=== PATIENT | female | born 1985 | race Asian ===

== ENCOUNTER 2017-07-18 12:35 | Emergency (ER) | payer OTHER ==
[~2017-07-18] VITALS: Ht 160 cm; Wt 68.9 kg
== END 2017-07-18 13:56 | disposition home or self-care (01) ==
LOC: ED 12:35
DX: H57.12 Ocular pain, left eye (principal); H00.034 Abscess of left upper eyelid; H00.035 Abscess of left lower eyelid; H00.014 Hordeolum externum left upper eyelid
CPT/HCPCS: 99282

== ENCOUNTER 2017-10-17 08:47 | Emergency (ER) | payer OTHER | END 2017-10-17 08:52 | disposition home or self-care (01) | LOC: ED 08:47 | DX: T23.009A Burn of unspecified degree of unspecified hand, unspecified site, initial encounter (principal); X08.8XXA Exposure to other specified smoke, fire and flames, initial encounter; Y93.89 Activity, other specified; Y92.89 Other specified places as the place of occurrence of the external cause; Y99.8 Other external cause status ==

== ENCOUNTER 2017-12-19 08:07 | Emergency (ER) | payer OTHER ==
[~2017-12-19] VITALS: Ht 160 cm; Wt 68.9 kg
[2017-12-19 09:21] LABS: POTASSIUM 4.2 mmol/L (3.6-5.2)
[2017-12-19 09:24] LABS: PLATELET COUNT 419 K/uL (152-353)
== END 2017-12-19 09:40 | disposition home or self-care (01) ==
LOC: ED 08:07
PROVIDERS: Family Medicine
DX: J06.9 Acute upper respiratory infection, unspecified (principal)
CPT/HCPCS: 80048; 85027; 99283

== ENCOUNTER 2018-02-24 07:55 | Emergency (ER) | payer OTHER ==
[~2018-02-24] VITALS: Ht 160 cm; Wt 72.6 kg
== END 2018-02-24 09:03 | disposition home or self-care (01) ==
LOC: ED 07:55
DX: T23.071A Burn of unspecified degree of right wrist, initial encounter (principal); T31.0 Burns involving less than 10% of body surface; X11.8XXA Contact with other hot tap-water, initial encounter
CPT/HCPCS: 99282

== ENCOUNTER 2019-02-27 09:13 | Emergency (ER) | payer OTHER ==
[~2019-02-27] VITALS: Ht 160 cm; Wt 82.1 kg
[2019-02-27 09:31] VITALS: TEMP 97.9
[2019-02-27 10:24] LABS: PLATELET COUNT 289 K/uL (152-353)
[2019-02-27 10:32] LABS: POTASSIUM 3.9 mmol/L (3.6-5.2)
[2019-02-27 15:10] VITALS: BP 100/55
== END 2019-02-27 15:10 | disposition home or self-care (01) ==
LOC: ED 09:13
PROVIDERS: Internal Medicine
DX: R10.9 Unspecified abdominal pain (principal); N85.2 Hypertrophy of uterus
CPT/HCPCS: 36415; 80053; 81000; 85027; 96374; 96375; 99284; J1885; J2405; J2550; Q9963

== ENCOUNTER 2020-05-16 13:47 | Emergency (ER) | payer OTHER ==
[~2020-05-16] VITALS: Ht 160 cm; Wt 82.1 kg
[2020-05-16 14:21] VITALS: BP 137/71; TEMP 99.4
== END 2020-05-16 16:22 | disposition home or self-care (01) ==
LOC: ED 13:47
DX: R05 Cough (principal); R06.02 Shortness of breath
CPT/HCPCS: 99281

== ENCOUNTER 2023-01-01 16:01 | Observation (INO) | payer OTHER ==
[~2023-01-01] VITALS: Ht 160 cm; Wt 70.0 kg
[2023-01-01 16:08] VITALS: BP 137/80; TEMP 98.4
[2023-01-01 16:49] LABS: POTASSIUM 3.6 mmol/L (3.6-5.2)
[2023-01-01 17:12] LABS: PLATELET COUNT 210 K/uL (152-353)
[2023-01-01 17:39] LABS: PARTIAL THROMBOPLASTIN TIME < 20.0 SECONDS (24.5-33.6)
[2023-01-01 20:08] VITALS: BP 119/57; TEMP 98.3
[2023-01-01 22:41] VITALS: BP 127/65; TEMP 98.5; Ht 160 cm; Wt 70.0 kg
[2023-01-02] VITALS (12 sets, daily range): BP systolic 104–122; BP diastolic 51–78; TEMP 97.6–98.8
[2023-01-02] MEDS ORDERED: ASCO500T18 PO (07:48)
[2023-01-02] MEDS ORDERED: FERROUS SULF325 MG PO (07:48)
[2023-01-02 08:45] LABS: PLATELET COUNT 179 K/uL (152-353)
== END 2023-01-02 13:57 | disposition home or self-care (01) ==
LOC: ED 16:01 → MED/SURG 17:35
PROVIDERS: ADMIT Emergency Medicine; ATTEND Internal Medicine
PROC: 30233N1 Transfusion of Nonautologous Red Blood Cells into Peripheral Vein, Percutaneous Approach (ICD-10-PCS; principal; 2023-01-02)
DX: D50.8 Other iron deficiency anemias (principal); N92.0 Excessive and frequent menstruation with regular cycle
CPT/HCPCS: 36415; 36430; 80053; 82728; 83540; 84484; 85027; 85610; 85730; 86850; 86900; 86901; 86922; 87635; 93005; 99220; 99283; G0378; P9016; U0003